=== PATIENT | male | born 1925 | race Caucasian/White ===

== ENCOUNTER 2016-07-09 09:00 | Inpatient (IN) | payer MEDICARE ==
[~2016-07-09] VITALS: Ht 177.8 cm; Wt 98.1 kg
[2016-07-09] MEDS ORDERED: ROSU10 PO (09:23)
[2016-07-09] MEDS ORDERED: MULT-135 PO (09:23)
[2016-07-19 07:54] VITALS: BP 142/69; PULSE 67; RESP 18; TEMP 98.2; O2SAT 97
[2016-07-19] MEDS ORDERED: LACTATED RINGER'S 1000 ML INJ 1,000 ML ONE (08:10)
[2016-07-19] MEDS ORDERED: GENTAMICIN SULFATE 80 MG/2 ML VIAL ONE (08:17)
[2016-07-19] MEDS ORDERED: ceFAZolin 2 GM PREMIX 50 ML ONE (08:17)
[2016-07-19] MEDS ORDERED: MIDAZOLAM HCL 2 MG/2 ML VIAL ONE (08:35)
[2016-07-19] MEDS ORDERED: FAMOTIDINE 20 MG/2 ML VIAL ONE (08:36)
[2016-07-19] MEDS ORDERED: LACTATED RINGER'S 1000 ML IV SCH (08:45)
[2016-07-19] MEDS ORDERED: EXPAREL PERI-ARTICULAR INJECTION (TOTAL VOL. 100 ML) P-ARTICULR SCH ×2 (08:45)
[2016-07-19] MEDS ORDERED: SODIUM CHLORIDE 0.9% IV SCH ×2 (08:45→11:45)
[2016-07-19] MEDS ORDERED: TRANEXAMIC ACID IV SCH ×2 (08:45→11:45)
[2016-07-19] MEDS ORDERED: METOPROLOL TARTRATE 25 MG TAB PO PRN (08:45)
[2016-07-19] MEDS ORDERED: SODIUM CHLORID 0.9% 500 ML IV SCH (08:45)
[2016-07-19] MEDS ORDERED: INSULIN HUMAN REGULAR 1,000 UNITS/10 ML VIAL SQ PRN (08:45)
[2016-07-19] MEDS ORDERED: CHLORHEXIDINE GLUCONATE 4% SOLN 120 ML BTL TOP SCH (08:45)
[2016-07-19] MEDS ORDERED: ACETAMINOPHEN 1000 MG/100 ML VIAL IV ONE (08:52)
[2016-07-19] MEDS ORDERED: DEXAMETHASONE SOD PHOS 4 MG/ML VIAL ONE (08:52)
[2016-07-19] MEDS ORDERED: CIPROFLOXACIN 400 MG PREMIX 200 ML ONE (08:57)
[2016-07-19] MEDS ORDERED: CLINDAMYCIN PHOS 900 MG/6 ML VIAL ONE (09:11)
[2016-07-19] MEDS ORDERED: ePHEDrine/NS 50 MG/5 ML SYR IV ONE (11:52)
[2016-07-19] MEDS ORDERED: ONDANSETRON HCL 4 MG/2 ML VIAL IV PUSH ONE (11:52)
[2016-07-19] MEDS ORDERED: LACTATED RINGER'S 1000 ML INJ 1,000 ML IV ONE (11:52)
[2016-07-19] MEDS ORDERED: PROPOFOL 200 MG/20 ML AMP IV ONE (11:52)
[2016-07-19] MEDS: LACTATED RINGER'S 1000 ML INJ 1,000 ML IV SCH (11:59)
[2016-07-19] MEDS ORDERED: Post-op Orders (for Pharmacy) MISC XX ONE (12:00)
[2016-07-19] MEDS ORDERED: ACETAMINOPHEN/HYDROcodone 325 MG/7.5 MG TAB PO PRN (12:00)
[2016-07-19] MEDS ORDERED: ONDANSETRON HCL 4 MG/2 ML VIAL IVP PRN (12:00)
[2016-07-19] MEDS ORDERED: MAGNESIUM HYDROXIDE SUSP 30 ML CUP PO PRN (12:00)
[2016-07-19] MEDS ORDERED: TRANEXAMIC ACID INJ 0 MG in SODIUM CHLORIDE 0.9% INJ 100 ML IV SCH (12:00)
[2016-07-19] MEDS: KETOROLAC TROMETHAMINE 30 MG/ML (IVP) VIAL IVP SCH ×2 (12:00→18:25)
[2016-07-19] MEDS ORDERED: ZOLPIDEM TARTRATE 5 MG TAB PO PRN (12:00)
[2016-07-19] MEDS ORDERED: MORPHINE SULFATE 4 MG/ML INJ IV PUSH PRN (12:00)
[2016-07-19] MEDS ORDERED: SODIUM CHLORIDE 0.9% FLUSH 5 ML FLUSH IVF PRN (12:00)
[2016-07-19] MEDS ORDERED: ROPIVACAINE 0.5% PF INJ 30 ML VIAL NB ONE (12:44)
[2016-07-19] MEDS ORDERED: DO NOT ADM ANY ANTICOAGULANT DRUGS XX PRN (13:00)
--- NOTE | 2016-07-19 14:15 | RADRPT ---
EXAM DATE/TIME: 07/19/2016 12:44 [place] COMPARISON: No previous studies available for comparison. INDICATIONS : Post op Right knee MEDICAL HISTORY : None. SURGICAL HISTORY : None. ENCOUNTER: Initial ACUITY: 1 day PAIN SCORE: 5/10 LOCATION: Right knee FINDINGS: 2 views of the right knee demonstrates postsurgical changes following joint replacement. The prosthet ic components all appear to be well-seated and satisfactorily aligned. Surgical drain is identified i n the joint. There is no evidence of acute fracture. CONCLUSION: Satisfactory appearance of the right knee status post joint replacement. Naeem Lynn MD on July 19, 2016 at 14:12 Board Certified Radiologist. This report was verified electronically.
[2016-07-19] MEDS: CLINDAMYCIN INJ 900 MG in SODIUM CHLORIDE 0.9% INJ 100 ML IV SCH ×2 (16:00→22:16)
--- NOTE | 2016-07-19 16:26 | PD.CONS ---
HPI Service [facility] Consult Requested By Ortho Reason for Consult Med management Primary Care Physician Unknown Diagnoses: History of Present Illness 89 years old male with history of osteoarthritis and hyperlipidemia admitted electively for right total knee arthroplasty, patient states he has no pain at this point, is doing well postop, no fever or chills or chest pain or short of breath Review of Systems Other All 10 systems reviewed and was positive for what is mentioned in history of present illness otherwise negative Past Family Social History Allergies: Coded Allergies: Fire Ant (Verified Allergy, Severe, Anaphylaxis, 07/19/16) Insect Venoms (Verified Allergy, Severe, Anaphylaxis, 07/19/16) Penicillin (Verified Allergy, Severe, Anaphylaxis, 07/19/16) Aspirin (Verified Allergy, Mild, GI UPSET, 07/19/16) Past Medical History Hyperlipidemia Past Surgical History Neck and back surgery Shoulder surgery Family History Reviewed noncontributory Social History Denied tobacco alcohol or illicit drug abuse Physical Exam Vital Signs Vital Signs Date Time Temp Pulse Resp B/P Pulse Ox O2 Delivery O2 Flow Rate FiO2 07/19/16 15:30 65 18 148/75 98 Nasal Cannula 4 07/19/16 14:30 64 18 149/73 99 Nasal Cannula 4 07/19/16 13:30 58 18 150/69 99 Nasal Cannula 4 07/19/16 13:15 57 18 146/66 99 Nasal Cannula 4 07/19/16 13:00 56 18 137/66 99 Nasal Cannula 4 07/19/16 12:45 54 16 128/55 99 Nasal Cannula 4 07/19/16 12:30 63 18 119/58 98 Nasal Cannula 4 07/19/16 12:19 97.9 61 18 109/57 98 Nasal Cannula 4 07/19/16 07:54 98.2 67 18 142/69 97 Physical Exam GENERAL: This is a well-nourished, well-developed patient, in no apparent distress. SKIN: No rashes, ecchymoses or lesions. Cool and dry. HEAD: Atraumatic. Normocephalic. No temporal or scalp tenderness. EYES: Pupils equal round and reactive. Extraocular motions intact. No scleral icterus. No injection or drainage. ENT: Nose without bleeding, purulent drainage or septal hematoma. Throat without erythema, tonsillar hypertrophy or exudate. Uvula midline. Airway patent. NECK: Trachea midline. No JVD or lymphadenopathy. Supple, nontender, no meningeal signs. CARDIOVASCULAR: Regular rate and rhythm without murmurs, gallops, or rubs. RESPIRATORY: Clear to auscultation. Breath sounds equal bilaterally. No wheezes , rales, or rhonchi. GASTROINTESTINAL: Abdomen soft, non-tender, nondistended. No hepato-splenomegaly , or palpable masses. No guarding. MUSCULOSKELETAL: Right lower extremity in immobilizer, able to wiggle his toes NEUROLOGICAL: Awake and alert. Cranial nerves II through XII intact. Motor and sensory grossly within normal limits. Five out of 5 muscle strength in all muscle groups. Normal speech. Laboratory Laboratory Tests Test 07/19/16 08:05 Blood Type A POSITIVE Antibody Screen NEGATIVE Blood Bank Comment Imaging Last Impressions Knee X-Ray 07/19/16 1159 Signed Impressions: Service Date/Time: Tuesday, July 19, 2016 12:44 - CONCLUSION: Satisfactory appearance of the right knee status post joint replacement. Naeem Lynn MD Assessment and Plan Assessment and Plan 89 years old and with history of osteoarthritis status post right total knee arthroplasty, doing well postop, the management and DVT prophylaxis Xarelto per ortho, agree with continuing statin when okay with surgery Blood pressure is non-optimal, patient denied pain, recommend Vasotec as needed and monitoring blood pressure reading. Thank you for the for this consultation will follow patient with you Discussed Condition With Patient Andrew Mensah MD Jul 19, 2016 16:26
[2016-07-19 16:40] VITALS: BP 152/70; PULSE 81; RESP 18; TEMP 95.8; O2SAT 93
[2016-07-19 20:00] VITALS: BP 128/53; PULSE 82; RESP 18; TEMP 96.6; O2SAT 94
[2016-07-19] MEDS: SODIUM CHLORIDE 0.9% FLUSH 5 ML FLUSH IVF SCH (21:00)
--- NOTE | 2016-07-19 21:27 | HHI.FF ---
Face to Face Verification Diagnosis: (1) Status post total right knee replacement Physical Therapy Gait training Knee: Total knee, Protocol: Right, Full weight bearing Right LE Weight Bearing: WB as tolerated Right LE Range of Motion: Active ROM (AROM, AAROM, PROM, PRE. ROM goal is 0 to 135 degrees. ROM in OR was 0 to 150 degrees.) Nursing Nursing: Dressing changes Dressing Changes: Daily dressing change, Coverderm/Primapore Additional Instructions Remove steristrips on postop day 14. I have seen patient Jarvis Fuentes on 07/19/16. My clinical findings support the need for the requested home health care services because: Ltd mobility - disease progression Limited ability to care for self High risk of falls I certify that my clinical findings support that this patient is homebound because: Post-op weakness Unsteady gait/balance Unsafe to leave home unassisted Isaiah Parra MD (Charles) Jul 19, 2016 21:27
[2016-07-19] MEDS: ATORVASTATIN 20 MG TAB PO SCH (22:17)
[2016-07-20] VITALS (7 sets, daily range): BP systolic 107–151; BP diastolic 53–72; PULSE 61–70; RESP 16–18; TEMP 95.6–97.4; O2SAT 94–98
[2016-07-20] MEDS: KETOROLAC TROMETHAMINE 30 MG/ML (IVP) VIAL IVP SCH ×4 (00:56→17:57)
[2016-07-20] MEDS: LACTATED RINGER'S 1000 ML INJ 1,000 ML IV SCH (00:57)
[2016-07-20 06:11] LABS: HEMATOCRIT 33.2 % (39.0-51.0); REVIEW FLAG FINAL
[2016-07-20] MEDS: CLINDAMYCIN INJ 900 MG in SODIUM CHLORIDE 0.9% INJ 100 ML IV SCH (06:53)
--- NOTE | 2016-07-20 07:22 | PD.ORT.PN ---
Subjective Post Op Day #: 1 Subjective Remarks He is doing well. He has been OOB. There is little pain. Objective Vitals Vital Signs Date Time Temp Pulse Resp B/P Pulse Ox O2 Delivery O2 Flow Rate FiO2 07/20/16 04:00 95.6 61 16 113/62 95 07/20/16 00:00 96.3 70 16 107/53 94 07/19/16 20:00 96.6 82 18 128/53 94 07/19/16 16:40 95.8 81 18 152/70 93 07/19/16 16:28 72 18 152/75 98 Room Air 07/19/16 15:30 65 18 148/75 98 Nasal Cannula 4 07/19/16 14:30 64 18 149/73 99 Nasal Cannula 4 07/19/16 13:30 58 18 150/69 99 Nasal Cannula 4 07/19/16 13:15 57 18 146/66 99 Nasal Cannula 4 07/19/16 13:00 56 18 137/66 99 Nasal Cannula 4 07/19/16 12:45 54 16 128/55 99 Nasal Cannula 4 07/19/16 12:30 63 18 119/58 98 Nasal Cannula 4 07/19/16 12:19 97.9 61 18 109/57 98 Nasal Cannula 4 07/19/16 07:54 98.2 67 18 142/69 97 I/O 07/19/16 07/19/16 07/19/16 07/20/16 07/20/16 07/20/16 07:00 15:00 23:00 07:00 15:00 23:00 Intake Total 1100 ml 1354 ml 831 ml Output Total 310 ml 550 ml 280 ml Balance 790 ml 804 ml 551 ml Intake Oral 480 ml 120 ml IV Total 874 ml 711 ml Other 1100 ml Output Urine Total 400 ml 250 ml Drainage Total 10 ml 150 ml 30 ml Estimated Blood Loss 300 ml # Voids 1 # Bowel Movements 0 0 Result Diagram: 07/20/16 0537 Imaging Knee x-ray looks good. Last 24 hours Impressions Knee X-Ray 07/19/16 1159 Signed Impressions: Service Date/Time: Tuesday, July 19, 2016 12:44 - CONCLUSION: Satisfactory appearance of the right knee status post joint replacement. Naeem Lynn MD Objective Remarks He is resting comfortably, supine in bed in the [facility]. The original dressing is dry and intact. The neurovascular status is intact. Assessment & Plan Ortho Post Op Day #: 1 Problem List: (1) Status post total right knee replacement Plan: Continue postop care. Start PT. Assessment and Plan Condition: good. Orthopaedically stable. DVT prophylaxis: DESTINY stockings, sequentials, Xarelto. Discharge plans: Home with [facility], tomorrow. Has appointment. Isaiah Parra MD (Charles) Jul 20, 2016 07:22
[2016-07-20] MEDS: MULTIVITAMIN TAB PO SCH (08:34)
[2016-07-20] MEDS: SODIUM CHLORIDE 0.9% FLUSH 5 ML FLUSH IVF SCH ×2 (08:35→22:51)
--- NOTE | 2016-07-20 08:51 | MP ---
cc: Lurdes PALACIOS. DATE OF SURGERY 07/19/2016 PREOPERATIVE DIAGNOSIS Primary osteoarthritis right knee. POSTOPERATIVE DIAGNOSIS Primary osteoarthritis right knee. OPERATION PERFORMED Right total knee arthroplasty with [place] Triathlon prosthesis (uncemented). SURGEON Eduar Palacios MD ANESTHESIA Spinal with supplemental adductor canal block and local. INDICATIONS AND FINDINGS This 89-year-old man has had problems with his right knee going back several years, having had arthroscopic surgery on this twice in the past. More recently has had progressive worsening of pain with medial pain primarily, pain on weightbearing, difficulty walking on uneven surfaces especially and intermittent crepitation and popping. He has difficulty sitting. His ambulation tolerance is 100 feet. Treatment has included nonsteroidal anti-inflammatory agents, arthroscopic surgery, exercises, anti-inflammatory agents, intraarticular corticosteroid injections and ambulatory aids. He has not responded to conservative measures. Physical findings showed genu varum with medial laxity and palpable osteophytes along with crepitation and an antalgic gait. X-rays showed severe arthritis, particularly in the medial compartment but also the lateral and patellofemoral with loss of articular cartilage to exposed subchondral bone and a [id number] appearance with subarticular sclerosis and osteophytes. There is also calcification within the menisci consistent with chondrocalcinosis. Operative findings included severe osteoarthritis comparable to that seen in the x-rays. There was loss of articular cartilage to [id number] in the medial compartment with cartilaginous irregularity in the patellofemoral and lateral compartments. There were osteophytes. There was calcification of the menisci which were both torn. PROSTHESIS USED [place] Triathlon prosthesis. The femur was a size 6 cruciate-retaining, porous-coated for cement was used. The tibia was a Tritanium baseplate size 7 with an 11-mm spacer also cruciate-retaining of X3 polyethylene. The patella was an asymmetric Tritanium backed patella - this was size 32. PROCEDURE The patient had an adductor canal block carried out preoperatively. He was then transferred to the clean-air operating suite where a spinal anesthetic was administered. He was placed in a supine position on the operating table with a small bolster under the right hip. A pneumatic tourniquet was applied to the right thigh. The limb was prepped with alcohol, Hibiclens and Chloraprep and draped in the usual manner with the knee draped free. Prophylactic antibiotics were given in the form of clindamycin on arrival in the operating room. He also received tranexamic acid. After the appropriate prep and drape, the time-out procedure was carried out. Local anesthesia was administered into the incision site. An anterior incision was then made from about three fingerbreadths above the superior medial pole of the patella down to the tibial tubercle. The incision was deepened through the subcutaneous tissues to the retinacular structures which were exposed medially and laterally. A medial retinacular incision was made from the superior medial pole of the patella down to the tibial tubercle and up into the quadriceps tendon splitting it longitudinally in the medial one-third. The patella was reflected. Medial and lateral dissection was carried out. The infrapatellar fat pad was debulked. The posterior surface of the patella was excised with the oscillating saw. Patella protector was applied. The Whitesides line and epicondylar axis were marked. A fenestration was made in the distal end of the femur for the drill, drill holes made. The distal femoral cutting guide and jig were then assembled for a 5-degrees, 8-mm cut. This cutting block was stabilized with pins. The jig was removed. The distal femoral cut was completed with the oscillating saw. The sizing guide was then positioned in place with referencing off the epicondylar axis and Whitesides line. This was then stabilized with pins. The size was determined to be a size 6. A 4-in-1 cutting block was then positioned in place. Anterior and posterior cuts were made followed by posterior and anterior chamfer cuts. Osteophytes were trimmed from the femur. Medial and lateral meniscectomies were completed. The tibial guide was then positioned in place. This was positioned for rotation and angulation. When this was seated, the depth of cut was verified with a stylus off the high side. Distal femoral cutting block was stabilized with pins. The jig was removed. The depth of cut was adjusted. The cutting block was stabilized. The proximal tibial cut was completed with the oscillating saw taking care to prevent injury to ligamentous and neurovascular structures. After the proximal tibia was removed and further clean-up completed, the tibial baseplate was positioned in place. This was found to be appropriate for a size 7. An 11-mm spacer was chosen. Femoral component was impacted in place. After minor adjustments, the knee was taken through a range of motion and this was found to be 0 to 150 degrees. The stability was excellent in flexion and extension. A small lateral release was carried out to improve tracking of the patella. The patella drill guide had been positioned in place and drill holes made for the 35-mm patella, the trial for which was positioned in place. The patella trial was removed. The femoral drill holes were made. The femoral trial was removed. Tibial spacer was removed. The tibial punch was impacted through its guide and removed. The tibial drill guide was positioned in place. The tibial drill holes were made. This was removed. The cut ends of bone were cleaned with pulse lavage. After local anesthesia was administered throughout the knee with Exparel, the tibial baseplate was impacted into place and seated appropriately. A spacer was inserted. The femoral component was then impacted into place and seated appropriately. This was also stable. The patella was then positioned in place and stabilized with the patella vice. This was also stable. The drains were brought out the superolateral aspect of the suprapatellar pouch. The remainder of the Exparel was injected. Wound closure then commenced with 0 Vicryl interrupted simple [id number] sutures for closure of fascia, capsule and retinacular structures, 2-0 Vicryl interrupted simple sutures with buried knots for the subcutaneous tissues and 4-0 Monocryl continuous subcuticular closure for the skin. The wound was dressed with Steri-Strips followed by dry dressing, sterile Sof-Rol, cooling pad, further sterile Sof-Rol and Lefty bandages from the base of the toes to midthigh. The patient was transferred from the operating room to the recovery room in satisfactory condition having tolerated the procedure well. COUNTS Correct. SPECIMENS None. ESTIMATED BLOOD LOSS 250 mL. MD LASHAUN Guardado/DELANO /12:10 PM /8:36 AM
[2016-07-20 11:16] LABS: BICARBONATE 23.7 MEQ/L (21.0-32.0); POTASSIUM 4.2 MEQ/L (3.5-5.1)
[2016-07-20] MEDS: RIVAROXABAN 10 MG TAB PO SCH (11:27)
--- NOTE | 2016-07-20 12:29 | HHI.PR ---
Subjective Remarks Doing very well today, he just did physical therapy walking in the hallway, no chest pain or short of breath Still have pain in the knee but it's tolerable with the pain medication Objective Vitals Vital Signs Date Time Temp Pulse Resp B/P Pulse Ox O2 Delivery O2 Flow Rate FiO2 07/20/16 11:40 97.4 70 18 136/67 97 07/20/16 09:39 98 21 07/20/16 08:00 96.0 68 18 151/72 95 07/20/16 04:00 95.6 61 16 113/62 95 07/20/16 00:00 96.3 70 16 107/53 94 07/19/16 20:00 96.6 82 18 128/53 94 07/19/16 16:40 95.8 81 18 152/70 93 07/19/16 16:28 72 18 152/75 98 Room Air 07/19/16 15:30 65 18 148/75 98 Nasal Cannula 4 07/19/16 14:30 64 18 149/73 99 Nasal Cannula 4 07/19/16 13:30 58 18 150/69 99 Nasal Cannula 4 07/19/16 13:15 57 18 146/66 99 Nasal Cannula 4 07/19/16 13:00 56 18 137/66 99 Nasal Cannula 4 07/19/16 12:45 54 16 128/55 99 Nasal Cannula 4 07/19/16 12:30 63 18 119/58 98 Nasal Cannula 4 I/O 07/19/16 07/19/16 07/19/16 07/20/16 07/20/16 07/20/16 07:00 15:00 23:00 07:00 15:00 23:00 Intake Total 1100 ml 1354 ml 831 ml Output Total 310 ml 550 ml 280 ml Balance 790 ml 804 ml 551 ml Intake Oral 480 ml 120 ml IV Total 874 ml 711 ml Other 1100 ml Output Urine Total 400 ml 250 ml Drainage Total 10 ml 150 ml 30 ml Estimated Blood Loss 300 ml # Voids 1 # Bowel Movements 0 0 Result Diagram: 07/20/16 0537 07/20/16 1030 Objective Remarks GENERAL: This is a well-nourished, well-developed patient, in no apparent distress. CARDIOVASCULAR: Regular rate and rhythm without murmurs, gallops, or rubs. RESPIRATORY: Clear to auscultation. Breath sounds equal bilaterally. No wheezes , rales, or rhonchi. GASTROINTESTINAL: Abdomen soft, non-tender, nondistended. Normal active bowel sounds MUSCULOSKELETAL: Extremities without clubbing, cyanosis, or edema. NEURO: Alert & Oriented x4 to person, place, time, situation. Moves all ext x4 A/P Assessment and Plan 89 years old and with history of osteoarthritis status post right total knee arthroplasty, doing well postop, the management and DVT prophylaxis Xarelto per ortho, agree with continuing statin when okay with surgery Blood pressure is better reading today he is on Vasotec as needed and monitoring blood pressure reading., Hemoglobin is 11.3 today, Check CBC BMP in a.m. Andrew Menash MD Jul 20, 2016 12:29
[2016-07-20] MEDS ORDERED: ENALAPRILAT 1.25 MG/ML VIAL IV PUSH PRN (12:30)
[2016-07-20] MEDS: ATORVASTATIN 20 MG TAB PO SCH (22:50)
[2016-07-20] MEDS: DOCUSATE SODIUM 100 MG CAP PO SCH (22:50)
[2016-07-21 00:55] VITALS: BP 128/64; PULSE 66; RESP 16; TEMP 97.5; O2SAT 96
[2016-07-21] MEDS: ACETAMINOPHEN/HYDROcodone 325 MG/7.5 MG TAB PO PRN ×2 (03:55→09:18)
[2016-07-21 04:10] VITALS: BP 145/64; PULSE 76; RESP 17; TEMP 97.2; O2SAT 98
[2016-07-21] MEDS: KETOROLAC TROMETHAMINE 30 MG/ML (IVP) VIAL IVP SCH ×2 (06:00)
[2016-07-21 06:26] LABS: AUTOMATED NEUTROPHIL # 4.1 TH/MM3 (1.8-7.7); BASOPHIL % 0.4 % (0.0-2.0); EOSINOPHIL % 0.3 % (0.0-4.0); HEMATOCRIT 30.4 % (39.0-51.0); HEMO FLAGS DIFF FINAL; LYMPH % 22.2 % (9.0-44.0); LYMPHOCYTE # 1.4 TH/MM3 (1.0-4.8); MEAN CORPUSCULAR HEMOGLOBIN 32.7 PG (27.0-34.0); MEAN CORPUSCULAR HGB CONC 34.7 % (32.0-36.0); MONO % 11.2 % (0.0-8.0); NEUT % 65.9 % (16.0-70.0); PLATELET COUNT 117 TH/MM3 (150-450); RED BLOOD COUNT 3.23 MIL/MM3 (4.50-5.90); RED CELL DISTRIBUTION WIDTH 13.5 % (11.6-17.2); WHITE BLOOD COUNT 6.2 TH/MM3 (4.0-11.0)
--- NOTE | 2016-07-21 06:36 | PD.ORT.PN ---
Subjective Post Op Day #: 2 Subjective Remarks He is doing well. He walked to and from the total joint class. There is a little pain. Range of Motion 0 to 94 degrees. Distance Walked 100 feet. Objective Vitals Vital Signs Date Time Temp Pulse Resp B/P Pulse Ox O2 Delivery O2 Flow Rate FiO2 07/21/16 04:10 97.2 76 17 145/64 98 07/21/16 00:55 97.5 66 16 128/64 96 07/20/16 21:10 96.2 67 16 117/61 96 07/20/16 16:00 96.6 68 18 127/62 97 07/20/16 11:40 97.4 70 18 136/67 97 07/20/16 09:39 98 21 07/20/16 08:00 96.0 68 18 151/72 95 I/O 07/20/16 07/20/16 07/20/16 07/21/16 07/21/16 07/21/16 07:00 15:00 23:00 07:00 15:00 23:00 Intake Total 831 ml 600 ml 720 ml Output Total 280 ml 110 ml 30 ml 20 ml Balance 551 ml 490 ml 690 ml -20 ml Intake Oral 120 ml 600 ml 720 ml IV Total 711 ml Output Urine Total 250 ml Drainage Total 30 ml 110 ml 30 ml 20 ml # Voids 2 2 # Bowel Movements 0 0 0 Result Diagram: 07/21/16 0505 07/20/16 1030 Imaging Knee x-ray looks good. Last 24 hours Impressions Knee X-Ray 07/19/16 1159 Signed Impressions: Service Date/Time: Tuesday, July 19, 2016 12:44 - CONCLUSION: Satisfactory appearance of the right knee status post joint replacement. Naeem Lynn MD Objective Remarks He is resting comfortably, supine in bed in the [facility]. The dressing is dry and intact. There is no erythema. The neurovascular status is intact. Assessment & Plan Ortho Post Op Day #: 2 Problem List: (1) Status post total right knee replacement Plan: Continue postop care and PT. Assessment and Plan Condition: good. Orthopaedically stable. DVT prophylaxis: DESTINY stockings, sequentials, Xarelto. Discharge plans: Home with [facility], today. Has appointment. Rx: [place] 7.5/325. Isaiah Parra MD (Charles) Jul 21, 2016 06:36
[2016-07-21] MEDS ORDERED: HYDR-3580 PO (06:45)
[2016-07-21] MEDS ORDERED: XARE10TA PO (06:45)
[2016-07-21 08:00] VITALS: BP 126/58; PULSE 65; RESP 18; TEMP 97.6; O2SAT 95
[2016-07-21] MEDS: SODIUM CHLORIDE 0.9% FLUSH 5 ML FLUSH IVF SCH (09:00)
[2016-07-21] MEDS: MULTIVITAMIN TAB PO SCH (09:17)
[2016-07-21] MEDS: DOCUSATE SODIUM 100 MG CAP PO SCH (09:17)
--- NOTE | 2016-07-21 09:28 | HHI.PR ---
Subjective Remarks Doing very well with physical therapy Afebrile no chest pain or short of breath Plan to discharge home with home health today Objective Vitals Vital Signs Date Time Temp Pulse Resp B/P Pulse Ox O2 Delivery O2 Flow Rate FiO2 07/21/16 04:10 97.2 76 17 145/64 98 07/21/16 00:55 97.5 66 16 128/64 96 07/20/16 21:10 96.2 67 16 117/61 96 07/20/16 16:00 96.6 68 18 127/62 97 07/20/16 11:40 97.4 70 18 136/67 97 07/20/16 09:39 98 21 I/O 07/20/16 07/20/16 07/20/16 07/21/16 07/21/16 07/21/16 07:00 15:00 23:00 07:00 15:00 23:00 Intake Total 831 ml 600 ml 720 ml 600 ml Output Total 280 ml 110 ml 30 ml 20 ml 350 ml Balance 551 ml 490 ml 690 ml -20 ml 250 ml Intake Oral 120 ml 600 ml 720 ml 600 ml IV Total 711 ml Output Urine Total 250 ml 350 ml Drainage Total 30 ml 110 ml 30 ml 20 ml # Voids 2 2 # Bowel Movements 0 0 0 0 Result Diagram: 07/21/16 0505 07/20/16 1030 Objective Remarks GENERAL: This is a well-nourished, well-developed patient, in no apparent distress. CARDIOVASCULAR: Regular rate and rhythm without murmurs, gallops, or rubs. RESPIRATORY: Clear to auscultation. Breath sounds equal bilaterally. No wheezes , rales, or rhonchi. GASTROINTESTINAL: Abdomen soft, non-tender, nondistended. Normal active bowel sounds MUSCULOSKELETAL: Extremities without clubbing, cyanosis, or edema. NEURO: Alert & Oriented x4 to person, place, time, situation. Moves all ext x4 A/P Assessment and Plan 89 years old and with history of osteoarthritis status post right total knee arthroplasty, doing well postop, the management and DVT prophylaxis Xarelto per ortho, agree with continuing statin when okay with surgery Blood pressure is better reading today he is on Vasotec as needed and monitoring blood pressure reading., Hemoglobin stable, reviewed CBC BMP within normal limits Medical cleared for discharge home with home health care per Andrew Antonio MD Jul 21, 2016 09:28
[2016-07-21 10:18] VITALS: RESP 20
[2016-07-21] MEDS: RIVAROXABAN 10 MG TAB PO SCH (10:37)
== END 2016-07-21 12:40 | disposition home or self-care (01) | DRG 470 ==
LOC: HSDI 07-19 07:04 → N06B 07-19 16:34
PROVIDERS: ADMIT Orthopaedic Surgery; ATTEND Orthopaedic Surgery
PROC: 3E0T3CZ (ICD-10-PCS; 2016-07-19)
PROC: 0SRC0JA Replacement of Right Knee Joint with Synthetic Substitute, Uncemented, Open Approach (ICD-10-PCS; principal; 2016-07-19 09:05)
DX: M17.11 Unilateral primary osteoarthritis, right knee (principal); E78.5 Hyperlipidemia, unspecified; M21.169 Varus deformity, not elsewhere classified, unspecified knee; M11.261 Other chondrocalcinosis, right knee; Z87.891 Personal history of nicotine dependence
CPT/HCPCS: 73560; 80048; 85014; 85018; 85025; 86850; 86900; 86901; 94150; C1776; C9290; J0131; J0690; J0744; J1100; J1580; J1885; J2250; J2405; J2795; J3010; J7120